=== PATIENT | female | born 1975 | race Caucasian/White ===

== ENCOUNTER 2018-11-17 15:11 | Emergency (ER) | payer OTHER ==
[~2018-11-17] VITALS: Ht 162.6 cm; Wt 98.0 kg
[~2018-11-17 15:11] MED LIST: DICLOFENAC SODI50 MG PO; IBUPROFEN800 MG PO; MOTRIN800 MG PO; VASOTEC10 MG NGT
== END 2018-11-17 17:01 | disposition home or self-care (01) ==
LOC: ER 15:11
DX: R51 Headache (principal); H60.8X1 Other otitis externa, right ear

== ENCOUNTER 2019-01-07 08:23 | Emergency (ER) | payer OTHER ==
[~2019-01-07] VITALS: Ht 162.6 cm; Wt 95.3 kg
== END 2019-01-07 12:29 | disposition home or self-care (01) ==
LOC: ER 08:23
DX: M79.672 Pain in left foot (principal)

== ENCOUNTER 2019-03-08 18:43 | Emergency (ER) | payer OTHER ==
[~2019-03-08] VITALS: Ht 165.1 cm; Wt 77.1 kg
== END 2019-03-08 22:30 | disposition home or self-care (01) ==
LOC: ER 18:43
DX: D25.9 Leiomyoma of uterus, unspecified (principal); D50.9 Iron deficiency anemia, unspecified